=== PATIENT | male | born 1995 | race American Indian/Alaskan Native ===

== ENCOUNTER 2020-05-16 14:26 | Emergency (ER) | payer SELFPAY ==
--- NOTE | 2020-05-16 14:46 | Emergency Department Report ---
ED Lower Extremity HPI - General Chief Complaint: Extremity Injury, Lower Stated Complaint: LFT ANKLE PAIN Time Seen by Provider: 05/16/20 14:36 Source: patient Mode of arrival: Wheelchair Limitations: No Limitations - History of Present Illness Initial Comments: Patient is a 24-year-old male who presents emergency room with complaints of a left ankle injury that occurred prior to arrival. He states he was playing basketball and jumped up and then when he came down he had a inversion injury of his ankle. He has associated left ankle pain and swelling. He is not ambulatory secondary to pain. He denies any numbness or weakness. He is able to move the toes. He states he has sprained this ankle in the past but denies any previous fracture or surgery. No past medical history. No allergies to medications. - Related Data Previous Rx's Medication Instructions Recorded Last Taken Type HYDROcodone/APAP 5-325 [[place] 1 each PO Q8HR PRN #10 tablet 05/16/20 Unknown Rx 5/325] Ibuprofen [Motrin 600 MG tab] 600 mg PO Q8H PRN #20 tablet 05/16/20 Unknown Rx Allergies Allergy/AdvReac Type Severity Reaction Status Date / Time No Known Allergies Allergy Unverified 05/16/20 14:28 ED Review of Systems ROS: Stated complaint: LFT ANKLE PAIN Other details as noted in HPI Comment: All other systems reviewed and negative ED Past Medical Hx - Past Medical History Previous Medical History?: No - Surgical History Past Surgical History?: Yes Additional Surgical History: left knee - Medications Home Medications: Home Medications Medication Instructions Recorded Confirmed Last Taken Type HYDROcodone/APAP 5-325 [[place] 1 each PO Q8HR PRN #10 tablet 05/16/20 Unknown Rx 5/325] Ibuprofen [Motrin 600 MG tab] 600 mg PO Q8H PRN #20 tablet 05/16/20 Unknown Rx ED Physical Exam - General Limitations: No Limitations General appearance: alert, in no apparent distress - Head Head exam: Present: atraumatic, normocephalic - Eye Eye exam: Present: normal appearance - ENT ENT exam: Present: mucous membranes moist - Respiratory Respiratory exam: Absent: respiratory distress, accessory muscle use - Extremities Exam Extremities exam: Present: other (left ankle/foot swelling and pain, decreased ROM secondary to pain, he has strong pulses on doppler, able to move the digits, compartments are soft, no skin changes, no abrasion/laceration, no obvious deformity, neurovascularly intact) - Neurological Exam Neurological exam: Present: alert, oriented X3 - Psychiatric Psychiatric exam: Present: normal affect, normal mood - Skin Skin exam: Present: warm, dry, intact ED Course Vital Signs 05/16/20 05/16/20 14:28 16:15 Temperature 99.0 F Pulse Rate 78 68 Respiratory 18 17 Rate Blood Pressure 142/79 144/78 [Right] O2 Sat by Pulse 99 100 Oximetry ED Lower Extremity MDM - Radiology Data Radiology results: report reviewed Ordering Physician: JUANY JULIAN Date of Service: 05/16/20 Procedure(s): XR foot 3+V LT Accession Number(s): [id number] cc: JUANY JULIAN Fluoro Time In Minutes: LEFT ANKLE 3 VIEWS, LEFT FOOT 3 VIEWS INDICATION / CLINICAL INFORMATION: Foot and ankle pain following basketball injury COMPARISON: None available. FINDINGS: BONES / JOINT(S): There is a tiny avulsion fragment noted along the inferior surface of the medial malleolus. No other fractures are seen. No dislocation is seen. SOFT TISSUES: There is soft tissue swelling over malleoli and anterior ankle. ADDITIONAL FINDINGS: None. Signer Name: Reji Francis MD Signed: 05/16/2020 3:11 PM Workstation Name: [id number] Transcribed By: SS Dictated By: Reji Francis MD Electronically Authenticated By: Reji Francis MD Signed Date/Time: 05/16/20 1511 DD/ 1508 TD/TT: Ordering Physician: JUANY JULIAN Date of Service: 05/16/20 Procedure(s): XR ankle 3+V LT Accession Number(s): [id number] cc: JUANY JULIAN Fluoro Time In Minutes: LEFT ANKLE 3 VIEWS, LEFT FOOT 3 VIEWS INDICATION / CLINICAL INFORMATION: Foot and ankle pain following basketball injury COMPARISON: None available. FINDINGS: BONES / JOINT(S): There is a tiny avulsion fragment noted along the inferior surface of the medial malleolus. No other fractures are seen. No dislocation is seen. SOFT TISSUES: There is soft tissue swelling over malleoli and anterior ankle. ADDITIONAL FINDINGS: None. Signer Name: Reji Francis MD Signed: 05/16/2020 3:11 PM Workstation Name: [id number] Transcribed By: SS Dictated By: Reji Francis MD Electronically Authenticated By: Reji Francis MD Signed Date/Time: 05/16/201510 DD/ TD/TT: - Medical Decision Making Patient is a 24-year-old male who presents emergency room with complaints of a left ankle injury that occurred prior to arrival. He states he was playing basketball and jumped up and then when he came down he had a inversion injury of his ankle. He has associated left ankle pain and swelling. He is not ambulatory secondary to pain. He denies any numbness or weakness. He is able to move the toes. He states he has sprained this ankle in the past but denies any previous fracture or surgery. No past medical history. No allergies to medications. VSS. on exam: left ankle/foot swelling and pain, decreased ROM secondary to pain, he has strong pulses on doppler, able to move the digits, compartments are soft, no skin changes, no abrasion/laceration, no obvious defor mity, neurovascularly intact. XR left ankle: BONES / JOINT(S): There is a tiny avulsion fragment noted along the inferior surface of the medial malleolus. No other fractures are seen. No dislocation is seen. SOFT TISSUES: There is soft tissue swelling over malleoli and anterior ankle. ADDITIONAL FINDINGS: None. Patient given pain medication while in the ED as he did not drive and symptoms improved. Patient placed in a posterior splint and given crutches by photographer and remained neurovascularly intact. Discussed the importance of orthopedic follow-up with patient. Patient given prescription for ibuprofen and [place]. Advised patient Please take medication as prescribed as needed. Do not drive or operate machinery while taking severe pain medication. Please elevate your leg. Do not bear weight on the leg. Follow-up with orthopedic doctor. Return to emergency room for any new or worsening symptoms. - Differential Diagnosis Strain, sprain, fracture, dislocation, contusion, tendinitis Critical care attestation.: If time is entered above; I have spent that time in minutes in the direct care of this critically ill patient, excluding procedure time. ED Disposition Clinical Impression: Avulsion fracture of medial malleolus Qualifiers: Encounter type: initial encounter Fracture type: closed Laterality: left Qualified Code(s): S82.52XA - Displaced fracture of medial malleolus of left tibia, initial encounter for closed fracture Disposition: TO HOME OR SELFCARE Is pt being admited?: No Does the pt Need Aspirin: No Condition: Stable Instructions: Ankle Fracture, [id number] Additional Instructions: Please take medication as prescribed as needed. Do not drive or operate machinery while taking severe pain medication. Please elevate your leg. Do not bear weight on the leg. Follow-up with orthopedic doctor. Return to emergency room for any new or worsening symptoms. Prescriptions: Ibuprofen [Motrin 600 MG tab] 600 mg PO Q8H PRN #20 tablet PRN Reason: Pain, Moderate (4-6) HYDROcodone/APAP 5-325 [[place] 5/325] 1 each PO Q8HR PRN #10 tablet PRN Reason: Pain , Severe (7-10) Referrals: MIKI SORIANO MD [Staff Physician] - 2-3 Days [facility] [Provider Group] - 2-3 Days Time of Disposition: 15:45 Print Language: MOHAWK
--- NOTE | 2020-05-16 15:15 | XRay Report ---
LEFT ANKLE 3 VIEWS, LEFT FOOT 3 VIEWS INDICATION / CLINICAL INFORMATION: Foot and ankle pain following basketball injury COMPARISON: None available. FINDINGS: BONES / JOINT(S): There is a tiny avulsion fragment noted along the inferior surface of the medial ma lleolus. No other fractures are seen. No dislocation is seen. SOFT TISSUES: There is soft tissue swelling over malleoli and anterior ankle. ADDITIONAL FINDINGS: None. Signer Name: Reji Francis MD Signed: 05/16/2020 3:11 PM Workstation Name: [id number]
[2020-05-16] MEDS ORDERED: HYDROcodone/ACETAMINOPHEN 5-325 MG TAB PO ONE (15:30)
[2020-05-16 16:16] VITALS: BP 144/78
== END 2020-05-16 16:37 | disposition home or self-care (01) ==
LOC: ED 14:26
DX: S82.52XA Displaced fracture of medial malleolus of left tibia, initial encounter for closed fracture (principal); Z98.890 Other specified postprocedural states; Z79.899 Other long term (current) drug therapy; X58.XXXA Exposure to other specified factors, initial encounter; Y93.67 Activity, basketball; Y92.89 Other specified places as the place of occurrence of the external cause; Y99.8 Other external cause status